=== PATIENT | female | born 1960 | race Two or more races ===

== ENCOUNTER 2017-09-09 22:53 | Emergency (ER) | payer BC ==
[~2017-09-09] VITALS: Ht 154.9 cm; Wt 59.9 kg
--- NOTE | 2017-09-09 23:56 | NUR ---
Patient does not wish to proceed with medical care recommended by Paradise WAKEFIELD NP. Patient given information related to possible complications, up to and including , which could occur as a result of leaving the hospital at this time. Patient verbalizes understanding of risks involved due to leaving against medical advice. Patient has signed AMA form. PT AMBULATED OUT WITH A STEADY GAIT. VSS. PT WILL F/U WITH HER PMD IN THE AM.
[2017-09-09 23:59] VITALS: BP 125/81
== END 2017-09-09 23:56 | disposition left against medical advice (07) ==
LOC: ER 22:56
DX: R42 Dizziness and giddiness (principal); R11.0 Nausea
CPT/HCPCS: 99283; A4606; Z7610